=== PATIENT | male | born 1975 | race Caucasian/White ===

== ENCOUNTER 2024-07-16 11:32 | Observation (INO) | payer OTHER, BC, SELFPAY ==
[2024-07-16 11:37] VITALS: BP 96/59; PULSE 79; RESP 24; TEMP 36.3; O2SAT 92; BMI 40.4
--- NOTE | 2024-07-16 11:37 | PD.EDALLER ---
ED Allergic Reaction RME/HPI General Chief complaint: Allergic Reaction Stated complaint: AMS Time Seen by Provider: 07/16/24 11:40 Arrival date/time: 07/16/24 11:32 RME / HPI RME / HPI narrative: This section includes all my notes and documentations, including HPI, PE, MDM, Procedure Notes, and PLAN. Merlin Allen MD HPI: 48 year old male with history of hypertension presents to the ED BIBA from work for evaluation of altered mental status today. Per medics report on scene patient was combative, altered, with foam in his mouth. Coworkers on scene stated they witnessed the patient having a seizure and become unresponsive. State they performed CPR and placed an AED on his chest that did not fire. En route to ED patient's mental status improved. Patient reports he had been stung by what he believes to be a bee/wasp on his chin and shortly after passed out . Medics report they did not administer any medications. Patient denies any known allergies to bees or similar episodes. While in the ED only complains of chest soreness. Denies fevers, chills, sweats, cough, shortness of breath, abdominal pain, n/v/d, or urinary symptoms. Patient had urinary and bowel incontinence by EMS. No other complaints. ROS: Respiratory: negative except as documented in HPI. Gastrointestinal: negative except as documented in HPI. Genitourinary: negative except as documented in HPI. Musculoskeletal: negative except as documented in HPI. Skin: negative except as documented in HPI. Neurological: negative except as documented in HPI. Physical Exam: General: Alert and oriented. No acute distress. Eyes: Conjunctivae and lids clear. EOMI. PERRL. ENT: No nasal congestion. Pharynx normal. Tympanic membrane normal bilaterally. No signs of angioedema. Neck: Supple. No JVD. Heart: RRR. Lungs: No respiratory distress. Good air movement. No rhonchi, wheezing, rales. Chest: No tenderness. Abdomen: Soft and nontender. Normal bowel sounds. No distension. No rebound or guarding. Legs: No clubbing, cyanosis, edema. Skin: Warm and dry. No rash. No obvious signs of insect stings. Neuro: Alert and oriented X 3. Cranial Nerves II-XII grossly intact. No peripheral motor deficits. I reviewed EMS notes. I reviewed all diagnostic test results. My interpretation of the EKG is sinus rhythm with nonspecific ST-T changes. My interpretation of the chest x-ray is no acute findings. My review of the CT reports is no acute findings. Blood tests and urine tests are unremarkable. At this point, diagnoses include seizure and/or anaphylaxis. Treatment here included Solu-Medrol and neb treatment and Keppra and oxygen. He remained stable. I discussed the case with our neurologist and our hospitalist. About the presentation and exam and diagnostics and treatments here. And need of further care in the hospital. Will accept the patient. Related Data Allergies Allergy/AdvReac Type Severity Reaction Status Date / Time bee venom protein (honey bee) Allergy Severe Unresponsiv Verified 07/16/24 11:36 e Review of Systems Review of Systems Systems Reviewed: All systems reviewed, normal except as documented Past Medical History Past Medical History CARDIAC: Positive Hypertension; Negative Cardiac Disorders or Congestive Heart Failure RESPIRATORY: Negative Chronic Obstructive Pulmonary Disease (COPD) or Asthma GASTROINTESTINAL: Negative Gastrointestinal Disorders GENITOURINARY: Negative Genitourinary Disorders or Renal Disease MUSCULOSKELETAL: Negative Musculoskeletal Disorders ENT: Negative History of ENT Problems ENDOCRINE: Negative Diabetes Mellitus Type 1 or Diabetes Mellitus Type 2 HEMATOLOGIC: Negative Blood Disorders or Sickle Cell Disease Surgical History SURGICAL: Negative Cardiac Surgery Social History SMOKING STATUS: Former smoker ED Exam Narrative Physical exam: As noted in HPI Course Quality Measures none Orders Category Date Time Status Patient Condition Routine Admission 07/16/24 16:[address] in Observation Status Routine Admission 07/16/24 16:51 Active Bedside COVID-19 Antigen Test NOW Care 07/16/24 11:41 Active Bedside Influenza A&B Antigen Test NOW Care 07/16/24 11:41 Completed COVID-19 Screening Questionnaire NOW Care 07/16/24 16:[address] Screening NOW Care 07/16/24 11:44 Active Decision to Admit X1 Care 07/16/24 16:17 Active EKG (ED ONLY) *Do not use* NOW Care 07/16/24 11:44 Completed MRI Screening NOW Care 07/16/24 16:57 Active MRI Screening NOW Care 07/16/24 17:06 Active Miscellaneous Nursing Order NOW Care 07/16/24 16:56 Active Notify provider NEEDED Care 07/16/24 16:51 Active Nurse Swallow Screen X1 Care 07/16/24 16:51 Active Saline [Insert IV] NOW Care 07/16/24 11:41 Active Seizure precautions NEEDED Care 07/16/24 16:53 Active Straight [In and Out Catheter] X1 Care 07/16/24 11:41 Active Consult to Neurology / Tele-Neurology Stat Cons 07/16/24 11:42 Active Consult to Neurology / Tele-Neurology Stat Cons 07/16/24 15:38 Active Diet Cardiac Diet 07/16/[address] abdomen pelvis w con Stat Exams 07/16/24 11:[address] angio chest Stat Exams 07/16/24 11:[address] head/brain wo con Stat Exams 07/16/24 11:45 Completed EKG (ED Only) Stat Exams 07/16/24 11:44 Draft MR head/brain wo con Routine Exams 07/16/24 Stop Req MR head/brain wo/w con Routine Exams 07/16/24 17:06 Ordered XR chest 1V portable Stat Exams 07/16/24 11:45 Completed Alcohol, Blood Medical Stat Lab 07/16/24 12:55 Completed BNP [B-Type Natriuretic Peptide] Stat Lab 07/16/24 12:14 Completed Basic Metabolic Panel AM DRAW Lab 07/17/24 05:00 Ordered Basic Metabolic Panel AM DRAW Lab 07/18/24 05:00 Ordered Basic Metabolic Panel AM DRAW Lab 07/19/24 05:00 Ordered CBC AM DRAW Lab 07/17/24 05:00 Ordered CBC AM DRAW Lab 07/18/24 05:00 Ordered CBC AM DRAW Lab 07/19/24 05:00 Ordered CBC Stat Lab 07/16/24 12:14 Completed CMP [Comprehensive Metabolic Panel] Stat Lab 07/16/24 12:55 Completed D-Dimer Stat Lab 07/16/24 12:14 Completed Drug Screen,Urine Stat Lab 07/16/24 15:12 Completed Magnesium AM DRAW Lab 07/17/24 05:00 Ordered Magnesium AM DRAW Lab 07/18/24 05:00 Ordered Magnesium AM DRAW Lab 07/19/24 05:00 Ordered Magnesium Stat Lab 07/16/24 12:55 Completed Phosphorous AM DRAW Lab 07/17/24 05:00 Ordered Phosphorous AM DRAW Lab 07/18/24 05:00 Ordered Phosphorous AM DRAW Lab 07/19/24 05:00 Ordered Prolactin* Stat Lab 07/16/24 12:14 Received Troponin I Stat Lab 07/16/24 12:55 Completed UA [Urinalysis] Stat Lab 07/16/24 15:18 Completed Acetaminophen Tab [Tylenol Tab] Med 07/16/24 16:51 Discontinued 650 mg PO Q6H PRN Acetaminophen Tab [Tylenol Tab] Med 07/16/24 16:58 Active 650 mg PO Q6H PRN Albuterol/Ipratr Rt Maricel [Duoneb Rt Maricel] Med 07/16/24 11:41 Discontinued 3 ml INH X1 ONE DiphenhydrAMINE [Benadryl] Med 07/16/24 17:05 Discontinued 50 mg PO X1 ONE Folic Acid Med 07/16/24 21:00 Active 1 mg PO BID HYDROcodone*/APAP 5/325 [[place] 5/325] Med 07/16/24 16:51 Active 1 tab PO Q6H PRN Heparin Inj Med 07/16/24 22:00 Active 5,000 unit SC Q8HR LORazepam [Ativan Inj] Med 07/16/24 16:51 Active 1 mg IV X1 PRN LORazepam [Ativan] Med 07/16/24 16:51 Active 0.5 mg PO Q4HR PRN LORazepam [Ativan] Med 07/16/24 16:51 Active 1 mg PO Q4HR PRN LORazepam [Ativan] Med 07/16/24 16:51 Active 2 mg PO Q4HR PRN MethylPREDNISolone.* [SoluMEDROL Inj] Med 07/16/24 11:41 Discontinued 125 mg IVP X1 ONE Ondansetron Inj [Zofran Inj] Med 07/16/24 16:51 Active 4 mg IV Q6H PRN Senna [Senokot] Med 07/16/24 16:51 Active 1 tab PO QDAY PRN Thiamine [Vitamin B-1] Med 07/16/24 21:00 Active 100 mg PO BID levETIRAcetam INJ [Keppra Inj] Med 07/16/24 11:54 Discontinued 2,000 mg IVP X1 ONE Code Status Routine Oth 07/16/24 16:51 Ordered EEG Awake and Drowsy Routine RT 07/16/24 16:56 Ordered Oxygen Delivery PRN RT 07/16/24 16:51 Active Vital Signs Vital signs: Vital Signs Temperature 97.4 F 07/16/24 11:37 Pulse Rate 79 07/16/24 11:37 Respiratory Rate 24 H 07/16/24 11:37 Blood Pressure 96/59 L 07/16/24 11:37 Pulse Oximetry (%) 92 L 07/16/24 11:37 Oxygen Delivery Method Nasal Cannula 07/16/24 11:37 Oxygen Flow Rate 3 07/16/24 11:37 Pulse ox is 92% on 3L nasal cannula which is low. Allergic Reaction MDM Narrative MDM Narrative:: Shawanda Torres am scribing for and in the presence of Dr. Allen. Patient data External records reviewed:: EMS form Clinical information provided by:: patient and EMS Social determinants that could affect healthcare access:: none Patient has the following chronic illnesses:: Hypertension How is presenting disease/condition affected by chronic disease/condition?: uneffected by Evaluation data The following diagnostics were reviewed and interpreted by me:: lab results, radiology exam(s) and EKG tracing(s) (My interpretation of the EKG is: Sinus rhythm (90 bpm) with nonspecific ST-T changes. Merlin Allen MD) Lab and/or radiology exams considered but not ordered:: None Interpretation Summary: Ordering Physician: Merlin Allen MD Date of Service: 07/16/24 Procedure(s): XR chest 1V portable Accession Number(s): [id number] cc: Merlin Allen MD; Seymour Stubbs MD~ Examination: AP chest single view TECHNIQUE: AP portable semiupright chest single view Exam date and time: July 16, 2024 1206 hours INDICATIONS: Shortness of breath today. FINDINGS: Normal heart size Lungs are clear. Osseous structures are intact IMPRESSION: No active disease Dictated By: Seymour Stubbs MD Signed By: <Electronically signed by Seymour Stubbs MD in OV> 07/16/24 1241 Ordering Physician: Merlin Allen MD Date of Service: 07/16/24 Procedure(s): CT abdomen pelvis w con Accession Number(s): [id number] cc: ANJEL PALAFOX MD; Merlin Allen MD; Seymour Stubbs MD~ Examination: CT abdomen with intravenous contrast CT pelvis with intravenous contrast 2-D coronal reconstructions 2-D sagittal reconstructions Date and time of exam:July 16, 2024 1401 hours INDICATIONS: Generalized abdominal pain today. CTDI: vol (mGy) 15.8 DLP: (mGycm) 1063 Technique: Multiple axial sections of the abdomen and pelvis have been obtained. 64 slice high-resolution scanner used. 3 mm axial sections have been obtained, post intravenous injection 60 cc Isovue-300 2-D sagittal, coronal reconstructions obtained. Low dose protocols were performed. One or more of the following dose reduction techniques were used; automated exposure control, adjustment of the mA and/or KV according to patient size, use of iterative reconstruction technique. Findings: No focal liver or splenic lesions No gallstones 30 mm fat-containing left adrenal mass No renal or ureteral calculi, no hydronephrosis Normal appendix No bowel obstruction No diverticulitis Urinary bladder wall thickening up to 7 mm No prostatomegaly Diffuse moderate to advanced lumbar degenerative disc disease IMPRESSION: No renal or ureteral calculi, no hydronephrosis Normal appendix No bowel obstruction Cystitis pattern Dictated By: Seymour Stubbs MD Signed By: <Electronically signed by Seymour Stubbs MD in OV> 07/16/24 1514 Ordering Physician: Merlin Allen MD Date of Service: 07/16/24 Procedure(s): CT angio chest Accession Number(s): [id number] cc: ANJEL PALAFOX MD; Merlin Allen MD; Seymour Stubbs MD~ Examination: CTA chest with intravenous contrast 2-D reconstructions 3-D reconstructions, vascular Date and time of exam: July 16, 2024 1401 hours INDICATIONS: Shortness of breath chest pain with syncopal episode today CTDI: vol (mGy) 14.3 DLP: (mGycm) 522 Technique: Multiple axial sections of the thorax have been obtained. 3 mm slice thickness, from below the hemidiaphragms to above the apices of the lungs. Mediastinal and lung density settings have been obtained. 2-D sagittal and coronal reconstructions. 3-D angiographic renderings, 3-D volume renderings, 3D post processing, vascular maximum intensity projections obtained. Contrast administered is 60 cc Isovue-300. Low dose protocols were performed. One or more of the following dose reduction techniques were used; automated exposure control, adjustment of the mA and/or KV according to patient size, use of iterative reconstruction technique. Findings: No thoracic aortic aneurysm dilatation or dissection No pulmonary artery emboli No paratracheal tracheobronchial or bronchopulmonary adenopathy Mild vascular congestion. No pneumonia or pulmonary edema No focal liver or splenic lesions Gallbladder is only partially visualized Fat-containing left adrenal adenoma 26 mm IMPRESSION: Negative for pulmonary artery emboli No pneumonia or pulmonary edema or pleural disease Dictated By: Seymour Stubbs MD Signed By: <Electronically signed by Seymour Stubbs MD in OV> 07/16/24 1510 Ordering Physician: Merlin Allen MD Date of Service: 07/16/24 Procedure(s): CT head/brain wo [facility] Accession Number(s): [id number] cc: ANJEL PALAFOX MD; Merlin Allen MD; Seymour Stubbs MD~ Examination: CT brain head without contrast. 2-D sagittal coronal reconstructions Date and time of exam:July 16, 2024 1347 hours INDICATIONS: Seizures today followed by altered mental status CTDI: vol (mGy):54.6 DLP: (mGycm):1165 Technique: Multiple CT axial sections of the brain have been obtained, 5 mm slice thickness. Contrast has not been administered. 2-D sagittal, coronal reconstructions have been obtained Low dose protocols were performed. One or more of the following dose reduction techniques were used; automated exposure control, adjustment of the mA and/or KV according to patient size, use of iterative reconstruction technique. Findings: No significant ventricular enlargement. Intra-axial or extra-axial hemorrhage density is not seen. No mass effect or midline shift Basal cisterns are not remarkable. Fourth ventricle is midline. Cranial vault intact. Impression: Negative for acute hemorrhage, mass effect or midline shift If symptoms persist, consider brain MRI follow-up Dictated By: Seymour Stubbs MD Signed By: <Electronically signed by Seymour Stubbs MD in OV> 07/16/24 1509 Medications / Prescriptions Medications or Prescriptions considered but not ordered:: None Medication administrations:: Medication Administration History Acetaminophen (Acetaminophen 325 Mg Tablet) 650 mg PO Q6H PRN PRN Reason: pain(1-3) and Fever >100.4 Stop: 08/15/24 16:50 Hydrocodone Bitart/Acetaminophen (Hydrocodone/Apap 5/325 Tablet) 1 tab PO Q6H PRN PRN Reason: PAIN SCALE 4-10(Mod-Sev Stop: 07/21/24 16:50 Folic Acid (Folic Acid 1 Mg Tablet) 1 mg PO BID TONYA Stop: 07/21/24 20:59 Heparin Sodium (Porcine) (Heparin Sod Inj 5000 Unit/Ml Vial) 5,000 unit SC Q8HR TONYA Stop: 07/30/24 21:59 Lorazepam (Lorazepam 0.5 Mg Tablet) 0.5 mg PO Q4HR PRN PRN Reason: CIWA Score 2-6 Stop: 07/21/24 16:50 Lorazepam (Lorazepam 0.5 Mg Tablet) 1 mg PO Q4HR PRN PRN Reason: CIWA SCORE 7-11 Stop: 07/21/24 16:50 Lorazepam (Lorazepam 0.5 Mg Tablet) 2 mg PO Q4HR PRN PRN Reason: CIWA SCORE 12-15 Stop: 07/21/24 16:50 Lorazepam (Lorazepam 2 Mg/Ml Vial) 1 mg IV X1 PRN PRN Reason: Breakthrough Agitation Ondansetron HCl (Ondansetron Inj 2 Mg/Ml Inj 2 Ml) 4 mg IV Q6H PRN; Protocol PRN Reason: NAUSEA OR VOMITING Stop: 08/15/24 16:50 Sennosides (Senna Tablet) 1 tab PO QDAY PRN; Protocol PRN Reason: constipation Stop: 08/15/24 16:50 Thiamine HCl (Thiamine 100 Mg Tablet) 100 mg PO BID TONYA Stop: 07/21/24 20:59 Discontinued Medications Acetaminophen (Acetaminophen 325 Mg Tablet) 650 mg PO Q6H PRN PRN Reason: pain and Fever >100.4 Stop: 08/15/24 16:50 Albuterol/Ipratropium (Albuterol/Ipratropium (Duoneb) Rt Maricel 3 Ml Nebu) 3 ml INH X1 ONE Stop: 07/16/24 11:42 Last Admin: 07/16/24 11:59 Dose: 3 ml Documented By: AH Diphenhydramine HCl (Diphenhydramine Elix 25 Mg/10 Ml Udc) 50 mg PO X1 ONE Stop: 07/16/24 17:06 Levetiracetam (Levetiracetam Inj 100 Mg/Ml Vial 5ml) 2,000 mg IVP X1 ONE Stop: 07/16/24 11:55 Last Admin: 07/16/24 12:23 Dose: 2,000 mg Documented By: AM Methylprednisolone Sodium Succinate (Methylprednisolone Sod Succ 62.5 Mg/Ml 2ml Vial) 125 mg IVP X1 ONE Stop: 07/16/24 11:42 Last Admin: 07/16/24 12:22 Dose: 125 mg Documented By: AM See above Consultations Consultation(s) initiated? (list below): Yes Consultation #1 (Physician, Specialty, Details): Neurology Time: 15:38 Consultation #2 (Physician, Specialty, Details): I spoke with resident Dr. Springer working with Dr. Card. Discussed patients PMHx, HPI, ED course, exam findings, labs, and radiology results. The hospitalist agree to accept the patient for admission. Time: 16:15 Diagnosis Differential Diagnosis allergic reaction: anaphylaxis, allergic reaction, angioedema, adverse reaction to drug and other (New onset seizure) Most likely diagnosis given after review of the tests above:: New onset seizure and anaphylaxis Admission Indicated Admission indicated?: indicated Admission Request Was there a request for admission?: Yes Admission Attestation Admission request attestation: Discussed case with our hospitalist service regarding admission. Discussed patients ED course, exam findings, labs, and radiology results. The Hospitalist [agrees,declines] to accept the patient for admission. Disposition Plan Disposition Plan: Admit Discharge Plan Plan Patient Disposition: Admit Acute Care w/in Hospital Prescriptions/Referrals Referrals: Anjel Palafox MD [Primary Care Provider] - In 1 week Problem List Clinical Impression: New onset seizure, Acute respiratory failure with hypoxia Patient/Caregiver Discharge Instructions Print Language: Citizen Of [place] Stand Alone Forms: Nicole Award Info., Patient Portal Info Letter
--- NOTE | 2024-07-16 11:44 | EKG_ITS ---
[facility] Test Date: 2024-07-16 Pat Name: SAADIA HAMMONDS Department: Room: - Gender: Male Roof Technician: : 1975 Requested By: Merlin Jeffries Order Number: [id number] Reading MD: Merlin Jeffries Measurements Intervals [place] Rate: 90 P: 39 MS: 142 QRS: 58 QRSD: 92 T: -77 QT: 352 QTc: 432 Interpretive Statements SINUS RHYTHM MODERATE T-WAVE ABNORMALITY, CONSIDER LATERAL ISCHEMIA [-0.1+ mV T WAVE IN I/aVL/V5/V6] MODERATE T-WAVE ABNORMALITY, CONSIDER INFERIOR ISCHEMIA [-0.1+ mV T WAVE IN II/aVF] No previous ECG available for comparison /store/S0/[id number]/[id number].pdf
--- NOTE | 2024-07-16 11:44 | XR_ITS ---
Examination: CT abdomen with intravenous contrast CT pelvis with intravenous contrast 2-D coronal reconstructions 2-D sagittal reconstructions Date and time of exam:July 16, 2024 1401 hours INDICATIONS: Generalized abdominal pain today. CTDI: vol (mGy) 15.8 DLP: (mGycm) 1063 Technique: Multiple axial sections of the abdomen and pelvis have been obtained. 64 slice high-resolution scanner used. 3 mm axial sections have been obtained, post intravenous injection 60 cc Isovue-300 2-D sagittal, coronal reconstructions obtained. Low dose protocols were performed. One or more of the following dose reduction techniques were used; automated exposure control, adjustment of the mA and/or KV according to patient size, use of iterative reconstruction technique. Findings: No focal liver or splenic lesions No gallstones 30 mm fat-containing left adrenal mass No renal or ureteral calculi, no hydronephrosis Normal appendix No bowel obstruction No diverticulitis Urinary bladder wall thickening up to 7 mm No prostatomegaly Diffuse moderate to advanced lumbar degenerative disc disease IMPRESSION: No renal or ureteral calculi, no hydronephrosis Normal appendix No bowel obstruction Cystitis pattern
--- NOTE | 2024-07-16 11:44 | XR_ITS ---
Examination: CTA chest with intravenous contrast 2-D reconstructions 3-D reconstructions, vascular Date and time of exam: July 16, 2024 1401 hours INDICATIONS: Shortness of breath chest pain with syncopal episode today CTDI: vol (mGy) 14.3 DLP: (mGycm) 522 Technique: Multiple axial sections of the thorax have been obtained. 3 mm slice thickness, from below the hemidiaphragms to above the apices of the lungs. Mediastinal and lung density settings have been obtained. 2-D sagittal and coronal reconstructions. 3-D angiographic renderings, 3-D volume renderings, 3D post processing, vascular maximum intensity projections obtained. Contrast administered is 60 cc Isovue-300. Low dose protocols were performed. One or more of the following dose reduction techniques were used; automated exposure control, adjustment of the mA and/or KV according to patient size, use of iterative reconstruction technique. Findings: No thoracic aortic aneurysm dilatation or dissection No pulmonary artery emboli No paratracheal tracheobronchial or bronchopulmonary adenopathy Mild vascular congestion. No pneumonia or pulmonary edema No focal liver or splenic lesions Gallbladder is only partially visualized Fat-containing left adrenal adenoma 26 mm IMPRESSION: Negative for pulmonary artery emboli No pneumonia or pulmonary edema or pleural disease
--- NOTE | 2024-07-16 11:45 | XR_ITS ---
Examination: CT brain head without contrast. 2-D sagittal coronal reconstructions Date and time of exam:July 16, 2024 1347 hours INDICATIONS: Seizures today followed by altered mental status CTDI: vol (mGy):54.6 DLP: (mGycm):1165 Technique: Multiple CT axial sections of the brain have been obtained, 5 mm slice thickness. Contrast has not been administered. 2-D sagittal, coronal reconstructions have been obtained Low dose protocols were performed. One or more of the following dose reduction techniques were used; automated exposure control, adjustment of the mA and/or KV according to patient size, use of iterative reconstruction technique. Findings: No significant ventricular enlargement. Intra-axial or extra-axial hemorrhage density is not seen. No mass effect or midline shift Basal cisterns are not remarkable. Fourth ventricle is midline. Cranial vault intact. Impression: Negative for acute hemorrhage, mass effect or midline shift If symptoms persist, consider brain MRI follow-up
--- NOTE | 2024-07-16 11:45 | XR_ITS ---
Examination: AP chest single view TECHNIQUE: AP portable semiupright chest single view Exam date and time: July 16, 2024 1206 hours INDICATIONS: Shortness of breath today. FINDINGS: Normal heart size Lungs are clear. Osseous structures are intact IMPRESSION: No active disease
[2024-07-16] MEDS: ALBUTEROL/IPRATROPIUM (Duoneb) RT SOL 3 ML NEBU INH (11:59)
[2024-07-16 12:02] VITALS: PULSE 85; RESP 15; O2SAT 98
[2024-07-16] MEDS: MethylPREDNISolone SOD SUCC 62.5 MG/ML 2ML VIAL 125 MG IVP (12:22)
[2024-07-16 12:23] LABS: Basophils % (Auto) 0 % (0-2.5); Eosinophils # (Auto) 0.1 Thou/mm3 (0.0-0.5); Eosinophils % (Auto) 1 % (0-10); Hematocrit 43.3 % (41.0-53.0); Hemoglobin 15.4 g/dL (13.5-16.0); Immature Granulocytes % (Auto) 1 % (0-0); Immature Granulocytes Auto 0.08 Thou/mm3 (0.00-0.00); Lymphocytes # (Auto) 2.7 Thou/mm3 (1.0-4.8); Lymphocytes % (Auto) 25 % (10-50); Mean Corpuscular HGB Conc 35.6 g/dl (31.0-37.0); Mean Corpuscular Hemoglobin 32.2 pg (25.0-35.0); Mean Corpuscular Volume 91 fL (80-100); Monocytes # (Auto) 0.3 Thou/mm3 (0.0-0.8); Monocytes % (Auto) 2 % (0-12); Neutrophils # (Auto) 7.8 Thou/mm3 (1.8-7.7); Neutrophils % (Auto) 71 % (37-80); Nucleated Red Blood Cell % 0 /100 WBC (0); Platelet Count 262 Thou/mm3 (140-440); RDW Standard Deviation 38.7 fL (35.1-43.9); Red Blood Count 4.78 Miln/mm3 (4.50-5.90)
[2024-07-16] MEDS: levETIRAcetam INJ 100 MG/ML VIAL 5ML 2000 MG IVP (12:23)
[2024-07-16 12:27] VITALS: BP 125/84; PULSE 90; RESP 20; O2SAT 92
[2024-07-16 12:52] LABS: D-Dimer 985 ng/mL (<600)
[2024-07-16 13:24] LABS: Alanine Aminotransferase 25 U/L (10-49); Albumin, Serum 4.1 gm/dL (3.5-5.0); Albumin/Globulin Ratio 1.5 (1.2-2.2); Alcohol, Blood Medical < 10.0 mg/dL (0-10.0); Alkaline Phosphatase 80 U/L (46-116); Anion Gap 7 (7-16); Aspartate Amino Transferase 17 U/L (0-34); BUN/Creatinine Ratio 9 Ratio (12-20); Bilirubin,Total 0.9 mg/dL (0.3-1.2); Blood Urea Nitrogen 13 mg/dL (9-23); Calcium 9.4 mg/dL (8.3-10.6); Calcium (Corrected) 9.4 mg/dL (8.5-10.1); Carbon Dioxide 28.7 mMol/L (20.0-31.0); Chloride 100 mMol/L (98-107); Creatinine (Component) 1.5 mg/dL (0.6-1.3); Estimated Creatinine Clearance 84.2 mL/min (>60); Globulin 2.8 gm/dL (2.3-3.5); Glucose 159 mg/dL (74-106); Magnesium 1.8 mg/dL (1.6-2.6); Osmolality,Calculated 275 (275-295); Potassium 3.9 mMol/L (3.4-5.1); Sodium 136 mMol/L (136-145); Total Protein 6.9 gm/dL (5.7-8.2); Troponin I 0.035 ng/mL (0.0-0.045); eGFR 57 See Note
[2024-07-16 13:46] LABS: B-Type Natriuretic Peptide < 0 pg/mL (0-100)
--- NOTE | 2024-07-16 13:51 | PC.NURSE ---
boiler testing technician taking pt for CT scan. Pt able to have water when he gets back. Pt still refusing for a catheter to collect urine for UA.
[2024-07-16 15:35] LABS: Collection Type, Urine Clean Catch; Squamous Epithelial Cell,Urine 0 /hpf (0-5)
[2024-07-16 15:44] VITALS: BP 124/75; PULSE 87; RESP 18; TEMP 36.5; O2SAT 94
[2024-07-16 15:54] LABS: Bacteria,Urine Rare; Bilirubin,Urine Negative (Negative); Blood,Urine Negative (Negative); Color,Urine Yellow (Lt Yel-Yel); Glucose, Urine Negative (Negative); Hyaline Casts,Urine < 1 /hpf (0-1); Ketones,Urine Negative (Negative); Leukocyte Esterase,Urine Negative (Negative); Nitrite,Urine Negative (Negative); Protein,Urine 2+ (Neg - Trace); RBC,Urine 9 /hpf (0-3); Specific Gravity,Urine 1.034 (1.001-1.035); Urobilinogen,Urine Negative mg/dL (0.0-1.0); WBC,Urine 8 /hpf (0-5)
[2024-07-16 15:57] LABS: Clarity,Urine Hazy (Clear/Hazy)
[2024-07-16 16:04] LABS: Amphetamine/Methamp Scrn,U Negative (Negative); Barbiturate Screen,Urine Negative (Negative); Benzodiazepines Screen,Urine Negative (Negative); Benzoylecgonine Screen, Ur Negative (Negative); Fentanyl Screen,Urine Negative (Negative); Opiate Screen,Urine Negative (Negative); THC Screen,Urine Negative (Negative)
--- NOTE | 2024-07-16 17:03 | ESHP_ITS ---
<Statement entered by Dariela Card MD - 07/26/24 16:29> I reviewed above note and agree with findings and plans. I have also personally examined the patient with medicine team and went over assessment and plan with medical team including bakery pastry internship and resident physician. <Statement entered by Joshua Springer MD - 07/17/24 15:22> Senior Resident Attestation: I supervised/discussed management plan with bakery pastry internship physician Dr. Alcaraz, and was involved in the care of this patient. I personally saw and examined the patient and discussed the assessment and plan with the entire medicine team, including my attending. I agree with the assessment and plan as documented. Patient's care was discussed with attending physician, Dr. Card. Joshua Springer MD PGY-2. Documentation for date of: 07/16/24 HPI History of Present Illness Chief complaint: seizure like activity History of present illness: 48-year-old male with past medical history of hypertension was admitted to the hospital after coming to the ED with complaints of seizure-like activity after being stung by a a bee. Per patient's who was at bedside she stated that his coworkers were the ones that saw him collapse and she called one of the coworkers while she was at bedside. Coworker stated that patient started shaking mostly in his hands and sweating profusely and afterwards he collapsed. Per chart review the patient had some chest compressions done by his coworkers, but when paramedics arrived patient was combative and altered with some foam coming from his mouth. Per patient he stated that he had been stung by a bee in the past and has had some mild allergic reaction in the past when he was a child with some swelling and itchiness, but 4 years ago he was also stung in the allergic reaction was a little bit worse with more swelling and more itchiness and some feelings of numbness. On assessment patient was found to have a bee sting still present in his chin, I removed the bee sting. Patient also stated that he has been drinking around a sixpack of beers every day, with his last drink being yesterday afternoon around 4 PM in which he took around 3 to 4 cans of beer. He denies any seizure-like activity in the past. He denies any chest pain, shortness of breath, or abdominal pain. Of note, patient was less likely to have a cardiac arrest as paramedics found him confused and combative on the field. ED course: Initially patient came in tachypneic, hypotensive, hypoxic, and afebrile. Initial labs were relevant for mild leukocytosis, elevated D-dimer, YESICA, and bacteriuria. U tox was negative. Initial imaging included abdomen/pelvis CT was show some cystitis, chest CTA which was negative for any PE or pneumonia, chest x-ray which did not have any active disease, head CT which did not show any acute hemorrhage, mass effect, or midline shift. EKG shows sinus rhythm. ED physician spoke with neurologist who wanted the patient to be admitted to the hospital for further seizure workup. PMH: As above Social Hx: Admits drinking 6 cans of beers every day, denies any smoking or drugs Surgical Hx: Bilateral ankle surgery, and right knee surgery Meds: Amlodipine 10mg, enalapril 5 mg, HCTZ Review of Systems Review of Systems Narrative Review of Systems: Constitutional: Admits sweats, Denies weight loss/gain, Denies fever, Denies chills. HEENT: Denies hearing loss, Denies ear pain, Denies postnasal drip, Denies double vision, Denies blurry vision. Respiratory: Denies shortness of breath, Denies cough, Denies wheezing. Cardiovascular: Denies chest pain, Denies palpitations, Denies sudden loss of consciousness. GI: Denies blood in stool, Denies constipation, Admits/Denies abdominal pain, Denies difficulty swallowing, Denies nausea or vomit. : Denies urinary incontinence, Denies pain while urinating, Denies increased urinary frequency. MSK: Denies joint pain, Denies joint swelling, Denies numbness. Skin: Denies rash, Denies itching, Denies easy bruising, Admits bee sting. Neuro: Denies headaches, Denies dizziness, Admits seizure like activity. Past Medical History Past Medical History CARDIAC: Positive Hypertension; Negative Cardiac Disorders or Congestive Heart Failure RESPIRATORY: Negative Chronic Obstructive Pulmonary Disease (COPD) or Asthma GASTROINTESTINAL: Negative Gastrointestinal Disorders GENITOURINARY: Negative Genitourinary Disorders or Renal Disease MUSCULOSKELETAL: Negative Musculoskeletal Disorders ENT: Negative History of ENT Problems ENDOCRINE: Negative Diabetes Mellitus Type 1 or Diabetes Mellitus Type 2 HEMATOLOGIC: Negative Blood Disorders or Sickle Cell Disease Surgical History SURGICAL: Negative Cardiac Surgery Social History SMOKING STATUS: Former smoker Exam Vital Signs Temp Pulse Resp BP Pulse Ox O2 Del Method O2 Flow Rate 97.7 F 87 18 124/75 94 L Nasal Cannula 3 07/16/24 15:44 07/16/24 15:44 07/16/24 15:44 07/16/24 15:44 07/16/24 15:44 07/16/24 15:44 07/16/24 15:44 Narrative Exam General: A/O x3, no acute distress, obese Eyes: PERRL, EOMI. Anicteric, vision grossly intact. Ears: No ear pain, no ear discharge, Hearing grossly intact. Nose: No nasal discharge. Mouth/Throat: Dry mucous membranes, no redness, no lesions. Neck: short neck , non-tender, no cervical lymphadenopathy. Lungs: Clear BETTE to auscultation and percussion, No accessory muscle use. Cardio: Normal S1/S2, regular rhythm, no murmurs, no JVD. Abdomen: Soft, non-tender, no palpable masses, peristalsis present, no guarding or rebound. Extremities: Symmetrical, no significant deformities, 1+ peripheral edema , non-tender, peripheral pulses presents. Skin: No rashes, no lesions, warm to touch. foreign body underneath the chin with some erythematous skin changes around it and some mild swelling. Neuro: No focal neurological deficits. motor and sensory intact. Psych: Cooperative, appropriate mood and effect. Results: Labs 07/16/24 12:14 07/16/24 12:55 Labs: Short CBC 07/16/24 Range/Units 12:14 WBC 11.0 H (3.8-10.6) Thou/mm3 Hgb 15.4 (13.5-16.0) g/dL Hct 43.3 (41.0-53.0) % Plt Count 262 (140-440) Thou/mm3 BMP 07/16/24 12:55 Sodium 136 Potassium 3.9 Chloride 100 Carbon Dioxide 28.7 BUN 13 Creatinine 1.5 H Glucose 159 H Calcium 9.4 Cardiac Enzymes 07/16/24 Range/Units 12:55 Troponin I 0.035 (0.0-0.045) ng/mL Liver Function 07/16/24 Range/Units 12:55 Total Bilirubin 0.9 (0.3-1.2) mg/dL AST 17 (0-34) U/L ALT 25 (10-49) U/L Alkaline Phosphatase 80 (46-116) U/L Albumin 4.1 (3.5-5.0) gm/dL Urine 07/16/24 Range/Units 15:18 Urine Color Yellow (Lt Yel-Yel) Urine Clarity Hazy (Clear/Hazy) Urine pH 7.0 (5.0-7.0) Ur Specific [place] 1.034 (1.001-1.035) Urine Protein 2+ A (Neg - Trace) Urine Glucose (UA) Negative (Negative) Quality Measures Quality Measures none Medications Home Medications and Allergies Allergies Allergy/AdvReac Type Severity Reaction Status Date / Time bee venom protein (honey bee) Allergy Severe Unresponsiv Verified 07/16/24 11:36 e Visit Medications Acetaminophen (Acetaminophen 325 Mg Tablet) 650 mg PO Q6H PRN PRN Reason: pain(1-3) and Fever >100.4 Stop: 08/15/24 16:50 Hydrocodone Bitart/Acetaminophen (Hydrocodone/Apap 5/325 Tablet) 1 tab PO Q6H PRN PRN Reason: PAIN SCALE 4-10(Mod-Sev Stop: 07/21/24 16:50 Folic Acid (Folic Acid 1 Mg Tablet) 1 mg PO BID TONYA Stop: 07/21/24 20:59 Heparin Sodium (Porcine) (Heparin Sod Inj 5000 Unit/Ml Vial) 5,000 unit SC Q8HR [facility] Stop: 07/30/24 21:59 Lorazepam (Lorazepam 0.5 Mg Tablet) 0.5 mg PO Q4HR PRN PRN Reason: CIWA Score 2-6 Stop: 07/21/24 16:50 Lorazepam (Lorazepam 0.5 Mg Tablet) 1 mg PO Q4HR PRN PRN Reason: CIWA SCORE 7-11 Stop: 07/21/24 16:50 Lorazepam (Lorazepam 0.5 Mg Tablet) 2 mg PO Q4HR PRN PRN Reason: CIWA SCORE 12-15 Stop: 07/21/24 16:50 Lorazepam (Lorazepam 2 Mg/Ml Vial) 1 mg IV X1 PRN PRN Reason: Breakthrough Agitation Ondansetron HCl (Ondansetron Inj 2 Mg/Ml Inj 2 Ml) 4 mg IV Q6H PRN; Protocol PRN Reason: NAUSEA OR VOMITING Stop: 08/15/24 16:50 Sennosides (Senna Tablet) 1 tab PO QDAY PRN; Protocol PRN Reason: constipation Stop: 08/15/24 16:50 Thiamine HCl (Thiamine 100 Mg Tablet) 100 mg PO BID TONYA Stop: 07/21/24 20:59 Discontinued Medications Acetaminophen (Acetaminophen 325 Mg Tablet) 650 mg PO Q6H PRN PRN Reason: pain and Fever >100.4 Stop: 08/15/24 16:50 Albuterol/Ipratropium (Albuterol/Ipratropium (Duoneb) Rt Maricel 3 Ml Nebu) 3 ml INH X1 ONE Stop: 07/16/24 11:42 Last Admin: 07/16/24 11:59 Dose: 3 ml Levetiracetam (Levetiracetam Inj 100 Mg/Ml Vial 5ml) 2,000 mg IVP X1 ONE Stop: 07/16/24 11:55 Last Admin: 07/16/24 12:23 Dose: 2,000 mg Methylprednisolone Sodium Succinate (Methylprednisolone Sod Succ 62.5 Mg/Ml 2ml Vial) 125 mg IVP X1 ONE Stop: 07/16/24 11:42 Last Admin: 07/16/24 12:22 Dose: 125 mg Assessment & Plan Plan 48-year-old male with past medical history of hypertension was admitted to the hospital on 07/16/2024 for allergic reaction and seizure-like activity. #Allergic reaction to bee sting #Acute hypoxic respiratory failure #Leukocytosis ?Patient was stung by a bee this afternoon and afterwards had profuse sweating with associated hand shaking and then passing out. ? 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 ?Patient had a stinger under his chin with some swelling and redness ?Patient initially was mildly tachypneic hypotensive and hypoxic ?Chest x-ray did not show any active disease ?Chest CTA was negative for any PE or pneumonia ?WBC 11 ?ED gave 1 dose of 125 mg of methylprednisolone Plan: ?Benadryl 50 mg x 1 ?Will continue to monitor #Seizure-like activity ?Patient's coworker stated that he had some shaking of his hands as well as sweating and collapsing afterwards. ?Patient stated that he was confused afterwards, but he does have some lapses in memory. ?DDx new onset seizure secondary to alcohol withdrawal versus allergic reaction versus UTI triggered ?head CT was negative ?ED gave a loading dose of Keppra Plan: ?MRI with and without contrast ordered, and EEG ordered ?Seizure precautions ?Aspiration precautions ? Neurology consulted (Dr Menon), appreciate commendations ? Will continue to monitor #Alcohol abuse disorder ?Patient states that he drinks around 6 cans of beers every evening. ?States that his last drink was yesterday around 4 PM where he had 3 to 4 cans of beer ?AST 17 and ALT 25 Plan: ?CIWA protocol ordered ?Will continue monitor #YESICA ? There is no baseline creatinine or BUN on file ?Creatinine 1.5 today ?Likely prerenal as patient blood pressure was on the lower end due to possible allergic reaction causing vasodilation Plan: ?500 mL bolus x 1 ?Avoid nephrotoxic agents ?Renally dose medications ?Will continue to monitor #Asymptomatic bacteriuria ?Patient has no symptoms of UTI, but his UA was positive for bacteria ?Will hold off on any antibiotic regimen for now as it is asymptomatic bacteriuria. #Hx of hypertension ? patient has been normotensive since admission ?Will hold off on any antihypertensive medication for now Disposition: Patient admitted for observation due to possible seizure, pending eeg and MRI, as well as allergic reaction. Diet: Cardiac GI prophylaxis: not indicated DVT prophylaxis: Heparin sc Code: Full code Case disclosed with Attending Dr. Card and My senior Dr. Springer PGY2. Hector Pickering PGY1
[2024-07-16 17:06] VITALS: PULSE 87; RESP 18; O2SAT 94
--- NOTE | 2024-07-16 17:06 | XR_ITS ---
Examination: MRI of brain without intravenous contrast. MRI brain with intravenous contrast. Date and time of exam:July 16, 2024 1740 hours INDICATIONS: Seizure activity today, patient stem by the Technique: Multiple axial and sagittal images of the brain to been obtained. Siemens high-resolution 1.52 Alva short bore scanner utilized. Sagittal sections, T1 weighted images, TR 500, TE 14, are performed. Axial sections proton-density and T2-weighted images have been obtained. Inversion recovery axial images, TR 9260, TE 111, TR 2500. Diffusion weighted images, axial sections, TR 4800, TE 128, B value 1000. Axial sections, ADC map, TR 4800, TE 128. Axial and coronal images were also obtained post 4 cc gadolinium administered intravenously. Findings:: Enlargement of the sella turcica is not present. The optic chiasm and infundibular stalk are not remarkable. There is no localized enlargement of the medulla or delmy. Fourth ventricle and cerebellar tonsils appear normal in position. No subacute area of hemorrhage density is seen. Fourth ventricle is midline. Significant maxillary sinusitis Bilateral mastoiditis Mass in the cerebellopontine angle region is not evident. 7th and 8th nerve complexes exhibit symmetry Globes are symmetrical Orbital musculature including medial lateral rectus muscles do not exhibit abnormality Increased white matter signal is not seen Effacement of the cortical sulcal markings is not identified. Mass effect upon the ventricular system is not identified. Diffusion-weighted images demonstrate no focus of restricted diffusion Contrast images demonstrate no abnormal enhancement Impression: Negative for acute hemorrhage, mass effect or midline shift No acute infarct No MR findings diagnostic for demyelinating disease No abnormal enhancing cerebellar or cerebral lesions Significant maxillary sinusitis Significant bilateral mastoiditis
[2024-07-16] MEDS: LORazepam 2 MG/ML VIAL 1 MG IVP (17:30)
[2024-07-16] MEDS: DiphenhydrAMINE ELIX 25 MG/10 ML UDC 50 MG PO (17:30)
[2024-07-16 19:53] VITALS: BMI 39.5
[2024-07-16 20:00] VITALS: BP 144/92; PULSE 102; RESP 18; TEMP 36.3; O2SAT 94
[2024-07-16] MEDS: SODIUM CHLORIDE 0.9% 500 ML 500 ML 999 ML IV (21:01)
[2024-07-16] MEDS: FOLIC ACID 1 MG TABLET PO (21:02)
[2024-07-16] MEDS: THIAMINE 100 MG TABLET PO (21:02)
--- NOTE | 2024-07-16 23:44 | ESCONSULT_ITS ---
History of Present Illness Data of Consult Requesting Physician: Dariela Card MD Primary Care Provider: Anjel Mahmood MD Consult Narrative History of present illness: Patient is a 48-year-old male with hypertension presented to the ER with witnessed seizure-like activity after being stung by a bee. Reportedly the coworkers reported that he collapsed and started shaking mostly his hands with profuse sweating. He did have chest compressions done by his coworkers but when the paramedics arrived, patient was combative and altered with foaming at the mouth. Reportedly had bladder and bowel incontinence. He did report a history of mild allergic reaction in the past when he was a child with swelling and itchiness. He had another allergic reaction 4 years ago which was worse with more swelling and more itchiness associated with the paresthesias. He does drink 6 pack of beers every day and his last drink was yesterday afternoon around 4 PM. Denies any history of head injury, family history of seizures or seizures as a child. He denies any chest pain, shortness of breath or abdominal pain, nausea or vomiting. Workup in the ER: Vital signs: Initially reportedly tachypneic, hypotensive, hypoxic, and afebrile. Labs: Significant for mild leukocytosis, elevated D-dimer, YESICA, and bacteriuria. U tox was negative. Imaging: abdomen/pelvis CT was show some cystitis, chest CTA which was negative for any PE or pneumonia, chest x-ray which did not have any active disease, head CT which did not show any acute hemorrhage, mass effect, or midline shift. EKG shows sinus rhythm. Neurology was consulted, patient got admitted for 23 hours observation for further workup including MRI brain and EEG to evaluate further. Patient was loaded with Keppra in the ER. Patient was seen in [facility] with family at the bedside, completely asymptomatic, back to baseline without any deficit. No recurrence reported after admission. cc:: cc: Dariela Card MD Review of Systems Review of Systems Systems Reviewed: All systems reviewed, normal except as documented Past Medical History Past Medical History CARDIAC: Positive Hypertension; Negative Cardiac Disorders or Congestive Heart Failure RESPIRATORY: Negative Chronic Obstructive Pulmonary Disease (COPD) or Asthma GASTROINTESTINAL: Negative Gastrointestinal Disorders GENITOURINARY: Negative Genitourinary Disorders or Renal Disease MUSCULOSKELETAL: Negative Musculoskeletal Disorders ENT: Negative History of ENT Problems ENDOCRINE: Negative Diabetes Mellitus Type 1 or Diabetes Mellitus Type 2 HEMATOLOGIC: Negative Blood Disorders or Sickle Cell Disease Surgical History SURGICAL: Negative Cardiac Surgery Social History SMOKING STATUS: Former smoker Meds Home Medications and Allergies Home Medications ?Medication ?Instructions ?Recorded ?Confirmed ?Type amlodipine 10 mg tablet 10 mg PO QDAY 07/16/24 07/16/24 History enalapril maleate 5 mg tablet 5 mg PO QDAY 07/16/24 07/16/24 History hydrochlorothiazide 25 mg tablet 25 mg PO QDAY 07/16/24 07/16/24 History Allergies Allergy/AdvReac Type Severity Reaction Status Date / Time bee venom protein (honey bee) Allergy Severe Unresponsiv Verified 07/16/24 11:36 e Exam - Neurology Vital Signs Temp Pulse Resp BP Pulse Ox O2 Del Method O2 Flow Rate 97.3 F 102 H 18 144/92 H 94 L Room Air 3 07/16/24 20:00 07/16/24 20:00 07/16/24 20:00 07/16/24 20:00 07/16/24 20:00 07/16/24 20:00 07/16/24 17:06 Narrative Exam GENERAL APPEARANCE: Well developed, well-nourished in no acute distress. HEENT: Normocephalic, atraumatic, extraocular movements intact. Pupils: Equal reacting to light and accommodation NECK: Supple, no JVD or bruits. CARDIOVASULAR: Heart: S1, S2 heard, regular without S3-S4 or murmur no rubs or gallops. LUNGS/CHEST: Clear to auscultation bilaterally. No rails, rhonchi, or wheezing. Normal inspection. ABDOMEN: Soft, nontender, with normal bowel sounds. No pulsatile masses. No rebound, rigidity, or guarding. Normal inspection and palpation. EXTREMITIES: Normal inspection and palpation. No edema, clubbing or cyanosis. SKIN: Warm and dry without rashes. Normal inspection. MUSCULOSKELETAL: No cervical, thoracic, lumbar or midline bony tenderness. Normal inspection. NEURO: Alert, awake and oriented x3. Cranial nerves: II through XII grossly intact. Speech and language: Normal with no dysarthria or dysphasia. Motor system: Tone and bulk: Normal: Strength: 5 out of 5 in all 4 extremities; No pronator drift noted. Deep tendon reflexes: 2+ bilaterally symmetrical. Plantar reflex: Downgoing bilaterally. Sensory system: Intact to all modalities of sensation bilaterally. Coordination: Intact to [id number] and [id number] test bilaterally. No ataxia, no dysmetria, or dysdiadochokinesia noted. No intention tremors noted. Gait: Normal. Toe, heel, tandem walk all are normal. Romberg: Negative. No signs of meningeal irritation noted. PSYCHIATRIC: Normal mood and affect. Results Labs 07/16/24 12:14 07/16/24 12:55 Labs: Short CBC 07/16/24 Range/Units 12:14 WBC 11.0 H (3.8-10.6) Thou/mm3 Hgb 15.4 (13.5-16.0) g/dL Hct 43.3 (41.0-53.0) % Plt Count 262 (140-440) Thou/mm3 BMP 07/16/24 12:55 Sodium 136 Potassium 3.9 Chloride 100 Carbon Dioxide 28.7 BUN 13 Creatinine 1.5 H Glucose 159 H Calcium 9.4 Cardiac Enzymes 07/16/24 Range/Units 12:55 Troponin I 0.035 (0.0-0.045) ng/mL Liver Function 07/16/24 Range/Units 12:55 Total Bilirubin 0.9 (0.3-1.2) mg/dL AST 17 (0-34) U/L ALT 25 (10-49) U/L Alkaline Phosphatase 80 (46-116) U/L Albumin 4.1 (3.5-5.0) gm/dL Urine 07/16/24 Range/Units 15:18 Urine Color Yellow (Lt Yel-Yel) Urine Clarity Hazy (Clear/Hazy) Urine pH 7.0 (5.0-7.0) Ur Specific [place] 1.034 (1.001-1.035) Urine Protein 2+ A (Neg - Trace) Urine Glucose (UA) Negative (Negative) Assessment & Plan Assessment and plan (1) New onset seizure: Status: Acute Assessment and plan: CT head: Negative Follow-up with MRI brain with and without contrast and EEG to evaluate further. Patient was loaded with Keppra in the ER, will hold off on Keppra until workup is completed (2) Hypertension: Status: Chronic Assessment and plan: Continue home meds
[2024-07-17] VITALS: BP 136/87; PULSE 89; RESP 18; TEMP 36.3; O2SAT 96
--- NOTE | 2024-07-17 00:25 | RESP.EEG ---
EEG has been completed and is ready for MD interpretation
[2024-07-17 00:26] VITALS: PULSE 105; RESP 20; RESP 94
[2024-07-17 04:00] VITALS: BP 140/82; PULSE 96; RESP 20; TEMP 36.7; O2SAT 93
[2024-07-17 06:05] LABS: Basophils % (Auto) 0 % (0-2.5); Eosinophils % (Auto) 0 % (0-10); Hemoglobin 13.5 g/dL (13.5-16.0); Immature Granulocytes % (Auto) 1 % (0-0); Immature Granulocytes Auto 0.08 Thou/mm3 (0.00-0.00); Lymphocytes # (Auto) 0.7 Thou/mm3 (1.0-4.8); Lymphocytes % (Auto) 6 % (10-50); Mean Corpuscular HGB Conc 36.5 g/dl (31.0-37.0); Mean Corpuscular Volume 91 fL (80-100); Monocytes # (Auto) 0.3 Thou/mm3 (0.0-0.8); Monocytes % (Auto) 3 % (0-12); Neutrophils # (Auto) 11.5 Thou/mm3 (1.8-7.7); Neutrophils % (Auto) 91 % (37-80); Nucleated Red Blood Cell % 0 /100 WBC (0); Platelet Count 272 Thou/mm3 (140-440); Red Blood Count 4.09 Miln/mm3 (4.50-5.90); White Blood Count 12.7 Thou/mm3 (3.8-10.6)
[2024-07-17 06:41] LABS: Anion Gap 9 (7-16); BUN/Creatinine Ratio 18 Ratio (12-20); Blood Urea Nitrogen 16 mg/dL (9-23); Calcium 9.3 mg/dL (8.3-10.6); Carbon Dioxide 21.6 mMol/L (20.0-31.0); Chloride 106 mMol/L (98-107); Creatinine (Component) 0.9 mg/dL (0.6-1.3); Estimated Creatinine Clearance 138.7 mL/min (>60); Glucose 138 mg/dL (74-106); Magnesium 1.9 mg/dL (1.6-2.6); Osmolality,Calculated 277 (275-295); Phosphorous 3.5 mg/dL (2.4-5.1); Potassium 3.6 mMol/L (3.4-5.1); Sodium 137 mMol/L (136-145); eGFR > 60 See Note
[2024-07-17 07:47] VITALS: PULSE 102; RESP 19; RESP 92
[2024-07-17 08:00] VITALS: BP 137/88; PULSE 94; RESP 18; TEMP 37.1; O2SAT 95
[2024-07-17] MEDS: THIAMINE 100 MG TABLET PO (08:00)
[2024-07-17] MEDS: FOLIC ACID 1 MG TABLET PO (08:00)
--- NOTE | 2024-07-17 11:00 | PC.SS ---
Patient Danny Delcid is a 48 Year old male admitted for Allergic Reaction, Seizure Like activity. SS met with patient to discuss discharge plan and review demographic information. Patient reports he lives at home with his , Latisha Delcid who is his surrogate decision maker [phone]. Patient reports he is able to complete all ADL's independently and does not utilize any source of DME. Patient resides in [place] and pharmacy of choice is [facility] in [place]. PCP is Anjel Mahmood. At tome of discharge patient will return home.
--- NOTE | 2024-07-17 13:32 | ESDS_ITS ---
<Statement entered by Linh Davis DO - 07/17/24 15:44> I, Linh Davis DO, attest that I was physically present for the martin portions of the service and evaluated the patient with the resident and I reviewed and discussed the case with the resident and agree with the resident's findings and plans of care as documented above Planned Discharge Date 07/17/24 DS: Providers Provider Date of admission: 07/16/24 16:51 Primary care physician: Anjel Mahmood MD Admitting Provider: Dariela Card MD Attending Provider on Admission: Dariela Card MD Consults: 07/16/24 11:42 Consult to Neurology / Tele-Neurology Stat Comment: Seizure Consulting Provider: Evaristo Menon 07/16/24 15:38 Consult to Neurology / Tele-Neurology Stat Comment: Consulting Provider: Evaristo Menon Attending Provider on DC: Linh Davis DO Discharging Provider: Linh Davis DO DS: Diagnosis Problem List Completed Was Problem List Reviewed/Reconciled?: Yes Hospital Course Hospital Course Hospital course: 48-year-old male with past medical history of hypertension was admitted to the hospital on 07/16/2024 for allergic reaction and seizure-like activity. In ED patient came in with complaints of complaints of seizure-like activity after being stung by a a bee. Initially patient came in tachypneic, hypotensive, hypoxic, and afebrile. Initial labs were relevant for mild leukocytosis, elevated D-dimer, YESICA, and bacteriuria. U tox was negative. Initial imaging included abdomen/pelvis CT was show some cystitis, chest CTA which was negative for any PE or pneumonia, chest x-ray which did not have any active disease, head CT which did not show any acute hemorrhage, mass effect, or midline shift. EKG shows sinus rhythm. Neurologist Dr Menon was consulted given seizure- like activity and she recommended to get patient an EEG and MRI with and without contrast. EEG and MRI with and without contrast were both unremarkable and as per neurologist patient was stable enough to be discharged at this time with no need for antiepileptic drugs. Was stable enough to be discharged home At the time of discharge patient and a prescription for an EpiPen was ordered and patient was counseled on how to properly use it. Discharge plan: Follow up with PCP within 1-2 weeks. Continue home medications as prescribed. Epinephrine pen is prescribed for severe allergic reaction and anaphylaxis. Problem list: #Allergic reaction to bee sting #Acute hypoxic respiratory failure #Seizure-like activity #Alcohol abuse disorder #YESICA #Asymptomatic bacteriuria #Leukocytosis #Hx of hypertension Case disclosed with Attending Dr. Davis and My senior Dr. Springer PGY2. Hector Pickering PGY1 Status at Discharge Overall status at discharge: patient is progressing back to baseline Time Spent with Patient Time attestation: Total time spent providing and/or coordinating discharge services:> 35 min Exam Vital Signs Temp Pulse Resp BP Pulse Ox O2 Del Method O2 Flow Rate 98.7 F 94 18 137/88 H 95 Room Air 3 07/17/24 08:00 07/17/24 08:00 07/17/24 08:00 07/17/24 08:00 07/17/24 08:00 07/17/24 08:00 07/16/24 17:06 Narrative Exam General: A/O x3, no acute distress, obese Eyes: PERRL, EOMI. Anicteric, vision grossly intact. Ears: No ear pain, no ear discharge, Hearing grossly intact. Nose: No nasal discharge. Mouth/Throat: Dry mucous membranes, no redness, no lesions. Neck: short neck , non-tender, no cervical lymphadenopathy. Lungs: Clear BETTE to auscultation and percussion, No accessory muscle use. Cardio: Normal S1/S2, regular rhythm, no murmurs, no JVD. Abdomen: Soft, non-tender, no palpable masses, peristalsis present, no guarding or rebound. Extremities: Symmetrical, no significant deformities, 1+ peripheral edema , non-tender, peripheral pulses presents. Skin: No rashes, no lesions, warm to touch. Neuro: No focal neurological deficits. motor and sensory intact. Psych: Cooperative, appropriate mood and effect. Discharge Plan Plan Patient Disposition: HOME (Self Care) Care Plan Goals: Follow up with PCP within 1-2 weeks. Continue home medications as prescribed. Epinephrine pen is prescribed for severe allergic reaction and anaphylaxis. Prescriptions/Referrals Prescriptions/Med Rec: New epinephrine 0.15 mg/0.3 mL auto-injector 0.15 mg subcut .x1 PRN (Reason: hypersensitivity reaction) Qty: 2 0RF Continued enalapril maleate 5 mg tablet 5 mg PO QDAY Patient Comments: TAKE 1 TABLET BY MOUTH EVERY DAY amlodipine 10 mg tablet 10 mg PO QDAY Patient Comments: TAKE 1 TABLET BY MOUTH EVERY DAY FOR 30 DAYS hydrochlorothiazide 25 mg tablet 25 mg PO QDAY Patient Comments: TAKE 1 TABLET BY MOUTH EVERY DAY IN THE MORNING FOR 90 DAY Referrals: Anjel Mahmood MD [Primary Care Provider] - Patient/Caregiver Discharge Instructions Education Materials: ED Alcohol Withdrawal Seizure Print Language: Ukrainian Stand Alone Forms: Nicole Award Info., Patient Portal Info Letter, Work/Release Restrictions Discharge Order Discharge Orders: Discharge (Routine); Ordered 07/17/24 Ordered By: Joshua Springer Quality Discharge Quality Measures VTE prophylaxis
--- NOTE | 2024-07-18 00:16 | PD.VPROG1 ---
Telemedicine visit statement This visit was conducted with the use of phone was obtained on 07/17/24 Documentation for date of: 07/17/24 Subjective Subjective Interval history: Patient is seen in [facility] today. No new symptoms reported. No recurrence of similar episodes after admission. Virtual exam Vital Signs Temp Pulse Resp BP Pulse Ox O2 Del Method O2 Flow Rate 98.7 F 94 18 137/88 H 95 Room Air 3 07/17/24 08:00 07/17/24 08:00 07/17/24 08:00 07/17/24 08:00 07/17/24 08:00 07/17/24 08:00 07/16/24 17:06 Objective Labs 07/17/24 05:26 07/17/24 05:26 Labs: Laboratory Results - last 24 hr 07/17/24 05:26 WBC 12.7 H RBC 4.09 L Hgb 13.5 Hct 37.0 L MCV 91 MCH 33.0 MCHC 36.5 RDW Std Deviation 39.0 Plt Count 272 Neut % (Auto) 91 H Lymph % (Auto) 6 L [place] % (Auto) 3 Eos % (Auto) 0 Baso % (Auto) 0 Neut # (Auto) 11.5 H Lymph # (Auto) 0.7 L [place] # (Auto) 0.3 Eos # (Auto) 0.0 Baso # (Auto) 0.0 Immature Gran # (Auto) 0.08 H Absolute Nucleated RBC 0.00 Immature Gran % 1 H Nucleated RBC % 0 Sodium 137 Potassium 3.6 Chloride 106 Carbon Dioxide 21.6 Anion Gap 9 BUN 16 Creatinine 0.9 D Estim Creat Clear Calc 138.7 eGFR > 60 BUN/Creatinine Ratio 18 Glucose 138 H Calculated Osmolality 277 Calcium 9.3 Phosphorus 3.5 Magnesium 1.9 Assessment & Plan Problem List (1) New onset seizure: Status: Acute Assessment and plan: , No recurrence reported workup: MRI brain, EEG: Unremarkable. Patient is stable for discharge home without AED. Follow-up in 2 to 3 weeks. (2) Hypertension: Status: Chronic Assessment and plan: Continue with home meds.
[2024-07-22 06:29] LABS: Prolactin* 130.8 ng/mL (2.0-18.0)
== END 2024-07-17 11:05 | disposition home or self-care (01) ==
LOC: SERX 16:18 → SERHOLD 07-17 04:48 → S3SX 07-17 04:51
PROVIDERS: Admitting Provider Internal Medicine; Emergency Provider Emergency Medicine; PCP Family Medicine; Visit Provider Internal Medicine
DX: T63.441A Toxic effect of venom of bees, accidental (unintentional), initial encounter (principal); J96.01 Acute respiratory failure with hypoxia; F10.10 Alcohol abuse, uncomplicated; I10 Essential (primary) hypertension; N17.9 Acute kidney failure, unspecified; N30.90 Cystitis, unspecified without hematuria; R56.9 Unspecified convulsions
CPT/HCPCS: 36415; 70450; 70553; 71045; 71275; 74177; 80048; 80053; 80307; 80320; 81001; 83735; 83880; 84100; 84146; 84484; 85025; 85379; 87400; 87811; 93005; 94640; 95816; 99285; A4649; A9270; A9579; G0378; J1953; J2060; J2919; J7040; Q9967; G0480